=== PATIENT | male | born 1940 | race Caucasian/White ===

== ENCOUNTER 2017-03-12 01:32 | Observation (INO) | payer OTHER ==
[~2017-03-12] VITALS: Ht 170.2 cm; Wt 107.7 kg
[~2017-03-12 01:32] MED LIST: CARVEDILOL12.5 M1 PO; CLINDAMYCIN HC300 MG PO; CORE25 PO; ECO81 PO; LAC PO; LASIX40 MG PO; LEVAQUIN750 MG PO; LEVOTHYROXINE0.15 M2 PO; LOTENSIN40 MG PO; POTASSIUM CHLO10 MEQ PO; SYN1 PO
[2017-03-12 02:28] LABS: CALCIUM 8.9 mg/dL (8.5-10.1); CARBON DIOXIDE 27.1 mmol/L (21-32); CHLORIDE SERUM 107 mmol/L (98-107); CREATININE SERUM 1.8 mg/dL (0.7-1.3); GLUCOSE SERUM 150 mg/dL (74-106); SODIUM SERUM 143 mmol/L (136-145)
[2017-03-12 02:33] LABS: ALBUMIN 3.4 g/dL (3.4-5.0); ALKALINE PHOSPHATASE 77 U/L (46-116); ALT/SGPT 16 U/L (16-63); AST/SGOT 22 U/L (15-37); BILIRUBIN TOTAL 1.18 mg/dL (0.20-1.00); TOTAL PROTEIN, SERUM 7.6 g/dL (6.4-8.2)
[2017-03-12 02:35] LABS: BASOPHIL % 0.6 % (0-2); PLATELET COUNT 158 x10^3mcL (130-400); RED CELL DISTRIBUTION WIDTH 13.1 % (11.5-14.5)
[2017-03-12] MEDS ORDERED: CARVEDILOL12.5 M1 PO (02:42)
[2017-03-12] MEDS ORDERED: FERROUS SULFAT325 M2 PO (02:43)
[2017-03-12] MEDS ORDERED: OLANZAPINE5 M2 PO (02:43)
[2017-03-12 02:44] LABS: CK-MB 1.4 ng/mL (0-3.6)
[2017-03-12] MEDS ORDERED: REQUIP0.5 MG PO (02:44)
[2017-03-12] MEDS ORDERED: ZESTRIL20 MG PO (02:45)
[2017-03-12 04:16] LABS: T3 TOTAL 0.58 ng/mL
[2017-03-12 04:19] LABS: CHOLESTEROL/HDL RATIO 3.5; PHOSPHOROUS 3.1 mg/dL (2.5-4.9)
[2017-03-12 04:31] LABS: FREE T4 1.55 ng/dL (0.76-1.46); FREE THYROXINE INDEX 3.8 ug/dL (1.4-4.5)
[2017-03-12] MEDS ORDERED: LEVOTHYROXINE0.15 M2 PO (04:34)
[2017-03-12 05:38] VITALS: BP 152/78
[2017-03-12 06:21] VITALS: BP 147/82
[2017-03-12 10:00] VITALS: BP 123/8
[2017-03-12 14:00] VITALS: BP 112/68
[2017-03-12 15:56] LABS: microscopic required? YES; urine erythrocyte 1+ (NEGATIVE)
[2017-03-12 16:06] LABS: AMPHETAMINE QUAL UR NONE DETECTED (NEG <=1000)
[2017-03-12 18:22] VITALS: BP 118/62
[2017-03-12 22:16] VITALS: BP 103/48
[2017-03-13] VITALS (8 sets, daily range): BP systolic 102–144; BP diastolic 8–98
[2017-03-13 06:34] LABS: PLATELET COUNT 135 x10^3mcL (130-400)
[2017-03-13 06:54] LABS: CALCIUM 8.5 mg/dL (8.5-10.1); CARBON DIOXIDE 28.1 mmol/L (21-32); CHLORIDE SERUM 105 mmol/L (98-107); CREATININE SERUM 1.8 mg/dL (0.7-1.3); GLUCOSE SERUM 92 mg/dL (74-106); PHOSPHOROUS 3.7 mg/dL (2.5-4.9); POTASSIUM SERUM 3.1 mmol/L (3.5-5.1); SODIUM SERUM 143 mmol/L (136-145)
[2017-03-13 07:05] LABS: BASOPHIL % 0 % (0-2)
[2017-03-14 06:12] VITALS: BP 127/58
[2017-03-14 06:18] LABS: CALCIUM 8.5 mg/dL (8.5-10.1); CARBON DIOXIDE 31.3 mmol/L (21-32); CHLORIDE SERUM 102 mmol/L (98-107); CREATININE SERUM 1.9 mg/dL (0.7-1.3); GLUCOSE SERUM 96 mg/dL (74-106); MAGNESIUM 1.9 mg/dL (1.8-2.4); PHOSPHOROUS 2.8 mg/dL (2.5-4.9); POTASSIUM SERUM 3.7 mmol/L (3.5-5.1); SODIUM SERUM 139 mmol/L (136-145)
[2017-03-14 07:33] LABS: PLATELET COUNT 162 x10^3mcL (130-400); RED CELL DISTRIBUTION WIDTH 13.8 % (11.5-14.5)
[2017-03-14 08:00] VITALS: BP 127/72
[2017-03-14 08:44] LABS: BAND NEUTROPHIL 2 % (0-10); MONOCYTE 7 % (0-7); SEGMENTED NEUTROPHILS 81 % (37-75)
[2017-03-14 08:45] LABS: PLATELET MORPHOLOGY LARGE PLATELET SEEN; rbc morphology (normal/abnorm) NORMAL (NORMAL)
[2017-03-14 10:32] VITALS: BP 96/55
[2017-03-14 12:57] VITALS: BP 120/59
[2017-03-14] MEDS ORDERED: BACTRIM DS1 TAB PO (13:22)
[2017-03-14 13:44] VITALS: BP 120/59
[2017-03-14 13:45] VITALS: BP 120/59
== END 2017-03-14 15:00 | disposition home health service (06) | DRG 291 ==
LOC: ED 01:32 → DU 03:22
PROVIDERS: Emergency Medicine; ADMIT Family Medicine
DX: I11.0 Hypertensive heart disease with heart failure (principal); G93.41 Metabolic encephalopathy; N17.0 Acute kidney failure with tubular necrosis; D68.69 Other thrombophilia; N39.0 Urinary tract infection, site not specified; I50.43 Acute on chronic combined systolic (congestive) and diastolic (congestive) heart failure; E86.0 Dehydration; E11.65 Type 2 diabetes mellitus with hyperglycemia; G47.33 Obstructive sleep apnea (adult) (pediatric); G25.81 Restless legs syndrome; E89.0 Postprocedural hypothyroidism; D64.9 Anemia, unspecified; F20.9 Schizophrenia, unspecified; Z68.37 Body mass index [BMI] 37.0-37.9, adult; Z95.0 Presence of cardiac pacemaker; Z79.82 Long term (current) use of aspirin
CPT/HCPCS: 36600; 82962; 83880; 84439; 97116-GP; 97530-GP; G0378; J0696; J1940; J2916; J3480; J3490; J7030; J7040; J7613; J7620; J7644; Q0092

== ENCOUNTER 2017-05-10 20:55 | Inpatient (IN) | payer OTHER ==
[~2017-05-10] VITALS: Ht 172.7 cm; Wt 118.0 kg
[~2017-05-10 20:55] MED LIST changes: +BACTRIM DS1 TAB PO; +FERROUS SULFAT325 M2 PO; +OLANZAPINE5 M2 PO; +REQUIP0.5 MG PO; +ZESTRIL20 MG PO
[2017-05-10 22:18] LABS: BASOPHIL % 0.2 % (0-2); PLATELET COUNT 161 x10^3mcL (130-400)
[2017-05-10 22:28] LABS: CALCIUM 8.6 mg/dL (8.5-10.1); CARBON DIOXIDE 30.7 mmol/L (21-32); CHLORIDE SERUM 102 mmol/L (98-107); CREATININE SERUM 1.6 mg/dL (0.7-1.3); GLUCOSE SERUM 126 mg/dL (74-106); POTASSIUM SERUM 4.3 mmol/L (3.5-5.1); SODIUM SERUM 140 mmol/L (136-145)
[2017-05-10 22:37] LABS: RED CELL DISTRIBUTION WIDTH 14.9 % (11.5-14.5)
[2017-05-10 22:42] LABS: microscopic required? NO
[2017-05-10 22:47] LABS: ALKALINE PHOSPHATASE 81 U/L (46-116); ALT/SGPT 12 U/L (16-63); AST/SGOT 16 U/L (15-37); BILIRUBIN TOTAL 0.7 mg/dL (0.20-1.00); TOTAL PROTEIN, SERUM 7.4 g/dL (6.4-8.2)
[2017-05-10 22:48] LABS: ALBUMIN 3.3 g/dL (3.4-5.0); CK-MB 0.6 ng/mL (0-3.6)
[2017-05-10 23:01] LABS: urine erythrocyte NEGATIVE (NEGATIVE)
[2017-05-11 02:03] LABS: AMPHETAMINE QUAL UR NONE DETECTED (NEG <=1000)
[2017-05-11 02:09] LABS: MAGNESIUM 2.1 mg/dL (1.8-2.4); PHOSPHOROUS 2.5 mg/dL (2.5-4.9)
[2017-05-11 02:43] VITALS: BP 125/75
[2017-05-11 04:36] LABS: BASOPHIL % 0.2 % (0-2); PLATELET COUNT 141 x10^3mcL (130-400)
[2017-05-11 04:37] LABS: RED CELL DISTRIBUTION WIDTH 15.6 % (11.5-14.5)
[2017-05-11 04:49] LABS: CALCIUM 8.4 mg/dL (8.5-10.1); CARBON DIOXIDE 27.7 mmol/L (21-32); CHLORIDE SERUM 103 mmol/L (98-107); CREATININE SERUM 1.6 mg/dL (0.7-1.3); GLUCOSE SERUM 107 mg/dL (74-106); POTASSIUM SERUM 3.9 mmol/L (3.5-5.1); SODIUM SERUM 139 mmol/L (136-145)
[2017-05-11 09:35] VITALS: BP 120/63
[2017-05-11 13:16] VITALS: BP 99/49
[2017-05-11 17:09] VITALS: BP 119/60
[2017-05-11 21:45] VITALS: BP 128/59
[2017-05-12 05:27] VITALS: BP 128/72
[2017-05-12 07:26] LABS: BASOPHIL % 0.5 % (0-2); PLATELET COUNT 136 x10^3mcL (130-400)
[2017-05-12 07:39] LABS: CALCIUM 8.4 mg/dL (8.5-10.1); CARBON DIOXIDE 28.5 mmol/L (21-32); CHLORIDE SERUM 106 mmol/L (98-107); CREATININE SERUM 1.6 mg/dL (0.7-1.3); GLUCOSE SERUM 86 mg/dL (74-106); POTASSIUM SERUM 3.3 mmol/L (3.5-5.1); SODIUM SERUM 142 mmol/L (136-145)
[2017-05-12 07:56] LABS: RED CELL DISTRIBUTION WIDTH 15.5 % (11.5-14.5)
[2017-05-12 09:42] VITALS: BP 136/75
[2017-05-12 13:32] VITALS: BP 135/76
[2017-05-12 17:20] VITALS: BP 122/69
[2017-05-12 21:46] VITALS: BP 129/67
[2017-05-13 05:05] VITALS: BP 137/73
[2017-05-13 06:52] LABS: BASOPHIL % 0.3 % (0-2); PLATELET COUNT 147 x10^3mcL (130-400)
[2017-05-13 06:54] LABS: CALCIUM 8.4 mg/dL (8.5-10.1); CARBON DIOXIDE 29.7 mmol/L (21-32); CHLORIDE SERUM 105 mmol/L (98-107); CREATININE SERUM 1.6 mg/dL (0.7-1.3); GLUCOSE SERUM 101 mg/dL (74-106); POTASSIUM SERUM 3.6 mmol/L (3.5-5.1); SODIUM SERUM 142 mmol/L (136-145)
[2017-05-13 07:11] LABS: RED CELL DISTRIBUTION WIDTH 15.6 % (11.5-14.5)
[2017-05-13 10:35] VITALS: BP 140/62
[2017-05-13 14:57] VITALS: BP 123/66
[2017-05-13 17:29] VITALS: BP 141/73
[2017-05-13 20:58] VITALS: BP 146/86
[2017-05-14 05:16] VITALS: BP 134/83
[2017-05-14 06:39] LABS: CALCIUM 8.6 mg/dL (8.5-10.1); CARBON DIOXIDE 30.2 mmol/L (21-32); CHLORIDE SERUM 103 mmol/L (98-107); CREATININE SERUM 1.6 mg/dL (0.7-1.3); GLUCOSE SERUM 94 mg/dL (74-106); POTASSIUM SERUM 3.6 mmol/L (3.5-5.1); SODIUM SERUM 143 mmol/L (136-145)
[2017-05-14 10:34] VITALS: BP 139/79
[2017-05-14 14:41] VITALS: BP 131/71
[2017-05-14 18:12] VITALS: BP 152/89
[2017-05-14 19:15] VITALS: BP 152/89
== END 2017-05-14 21:36 | DRG 177 ==
LOC: ED 20:55 → DU 05-11 00:17
PROVIDERS: Emergency Medicine Emergency Medical Services; ADMIT Family Medicine Sports Medicine
DX: J69.0 Pneumonitis due to inhalation of food and vomit (principal); G93.41 Metabolic encephalopathy; N17.0 Acute kidney failure with tubular necrosis; I50.43 Acute on chronic combined systolic (congestive) and diastolic (congestive) heart failure; D68.69 Other thrombophilia; Z68.41 Body mass index [BMI] 40.0-44.9, adult; E11.59 Type 2 diabetes mellitus with other circulatory complications; E11.65 Type 2 diabetes mellitus with hyperglycemia; F03.90 Unspecified dementia, unspecified severity, without behavioral disturbance, psychotic disturbance, mood disturbance, and anxiety; G25.81 Restless legs syndrome; I10 Essential (primary) hypertension; G47.33 Obstructive sleep apnea (adult) (pediatric); F20.9 Schizophrenia, unspecified; Z66 Do not resuscitate; Z95.0 Presence of cardiac pacemaker; Z22.322 Carrier or suspected carrier of Methicillin resistant Staphylococcus aureus
CPT/HCPCS: 36600; 82962; 83880; 94150; 97116-GP; 97530-GP; J0696; J1956; J2543; J7030; Q0092

== ENCOUNTER 2017-11-08 20:34 | Inpatient (IN) | payer OTHER ==
[~2017-11-08] VITALS: Ht 172.7 cm; Wt 112.1 kg
[2017-11-08] MEDS ORDERED: KCL20L PO (21:24)
[2017-11-08] MEDS ORDERED: KLOR-CON M1010 MEQ PO (22:09)
[2017-11-08] MEDS ORDERED: NATURAL IRON65 MG PO (22:10)
[2017-11-08 22:20] LABS: BASOPHIL % 0.7 % (0-2)
[2017-11-08 22:25] LABS: PLATELET COUNT 125 x10^3mcL (130-400); RED CELL DISTRIBUTION WIDTH 14.9 % (11.5-14.5)
[2017-11-08 22:29] LABS: CALCIUM 8.9 mg/dL (8.5-10.1); CARBON DIOXIDE 28.8 mmol/L (21-32); CHLORIDE SERUM 102 mmol/L (98-107); GLUCOSE SERUM 135 mg/dL (74-106); POTASSIUM SERUM 4.1 mmol/L (3.5-5.1); SODIUM SERUM 142 mmol/L (136-145)
[2017-11-08 22:41] LABS: ALBUMIN 3.6 g/dL (3.4-5.0); ALKALINE PHOSPHATASE 52 U/L (46-116); ALT/SGPT 20 U/L (16-63); AMYLASE 90 U/L (25-115); AST/SGOT 27 U/L (15-37); BILIRUBIN TOTAL 0.74 mg/dL (0.20-1.00); CHOLESTEROL 187 mg/dL (<200); HDL CHOLESTEROL 45 mg/dL (40-60); LIPASE 74 IU/L (73-393); MAGNESIUM 1.9 mg/dL (1.8-2.4); T4(THYROXINE) 8.6 ug/dL (4.7-13.3); TOTAL PROTEIN, SERUM 7.8 g/dL (6.4-8.2)
[2017-11-08 23:33] LABS: microscopic required? NO
[2017-11-09] VITALS (7 sets, daily range): BP systolic 94–130; BP diastolic 49–63; Ht 172.7 cm; Wt 112.1 kg
[2017-11-09 00:09] LABS: urine erythrocyte NEGATIVE (NEGATIVE)
[2017-11-09 00:18] LABS: AMPHETAMINE QUAL UR NONE DETECTED (NEG <=1000)
[2017-11-09 04:27] LABS: T3 TOTAL 0.41 ng/mL
[2017-11-09 04:35] LABS: FREE T4 1.27 ng/dL (0.76-1.46)
[2017-11-09 07:45] LABS: CALCIUM 8.1 mg/dL (8.5-10.1); CARBON DIOXIDE 27.6 mmol/L (21-32); CHLORIDE SERUM 103 mmol/L (98-107); GLUCOSE SERUM 124 mg/dL (74-106); POTASSIUM SERUM 3.7 mmol/L (3.5-5.1); SODIUM SERUM 142 mmol/L (136-145)
[2017-11-09 07:56] LABS: BASOPHIL % 0.1 % (0-2); PLATELET COUNT 142 x10^3mcL (130-400); RED CELL DISTRIBUTION WIDTH 15.4 % (11.5-14.5)
[2017-11-10 05:51] VITALS: BP 122/74
[2017-11-10 06:55] LABS: BASOPHIL % 0.4 % (0-2)
[2017-11-10 07:09] LABS: CALCIUM 7.9 mg/dL (8.5-10.1); CARBON DIOXIDE 26.7 mmol/L (21-32); CHLORIDE SERUM 107 mmol/L (98-107); CREATININE SERUM 1.7 mg/dL (0.7-1.3); GLUCOSE SERUM 89 mg/dL (74-106); MAGNESIUM 1.9 mg/dL (1.8-2.4); PHOSPHOROUS 3.4 mg/dL (2.5-4.9); POTASSIUM SERUM 3.8 mmol/L (3.5-5.1); SODIUM SERUM 142 mmol/L (136-145)
[2017-11-10 07:16] LABS: PLATELET COUNT 116 x10^3mcL (130-400); RED CELL DISTRIBUTION WIDTH 15.1 % (11.5-14.5)
[2017-11-10 09:10] VITALS: BP 135/68
[2017-11-10 13:01] VITALS: BP 123/63
[2017-11-10 16:50] VITALS: BP 129/69
[2017-11-10 21:02] VITALS: BP 135/77
[2017-11-11 05:14] VITALS: BP 125/77
[2017-11-11 07:51] LABS: BASOPHIL % 0.4 % (0-2)
[2017-11-11 07:52] LABS: PLATELET COUNT 126 x10^3mcL (130-400); RED CELL DISTRIBUTION WIDTH 15.3 % (11.5-14.5)
[2017-11-11 07:58] LABS: CALCIUM 8.1 mg/dL (8.5-10.1); CARBON DIOXIDE 29.3 mmol/L (21-32); CHLORIDE SERUM 105 mmol/L (98-107); CREATININE SERUM 1.6 mg/dL (0.7-1.3); GLUCOSE SERUM 89 mg/dL (74-106); POTASSIUM SERUM 3.8 mmol/L (3.5-5.1); SODIUM SERUM 142 mmol/L (136-145)
[2017-11-11 09:14] LABS: PHOSPHOROUS 3.1 mg/dL (2.5-4.9)
[2017-11-11 09:38] VITALS: BP 145/78
[2017-11-11 13:56] VITALS: BP 151/76
[2017-11-11 17:47] VITALS: BP 159/105
[2017-11-11 21:31] VITALS: BP 114/56
[2017-11-12 05:00] VITALS: BP 139/81
[2017-11-12 06:25] LABS: CALCIUM 8.5 mg/dL (8.5-10.1); CHLORIDE SERUM 105 mmol/L (98-107); CREATININE SERUM 1.5 mg/dL (0.7-1.3); GLUCOSE SERUM 88 mg/dL (74-106); POTASSIUM SERUM 4.2 mmol/L (3.5-5.1); SODIUM SERUM 142 mmol/L (136-145)
[2017-11-12 06:26] LABS: BASOPHIL % 0.4 % (0-2); PLATELET COUNT 135 x10^3mcL (130-400)
[2017-11-12 06:35] LABS: RED CELL DISTRIBUTION WIDTH 15.6 % (11.5-14.5)
[2017-11-12 09:16] VITALS: BP 136/88
[2017-11-12 13:48] VITALS: BP 152/87
[2017-11-12] MEDS ORDERED: LEV500 PO (15:15)
[2017-11-12] MEDS ORDERED: CLEOCIN HCL150 MG PO (15:16)
[2017-11-12] MEDS ORDERED: LAC PO (15:17)
[2017-11-12 16:35] VITALS: BP 152/87
[2017-11-12 17:48] VITALS: BP 158/114
== END 2017-11-12 19:41 | disposition home health service (06) | DRG 177 ==
LOC: ED 20:34 → DU 23:12 → MU 23:12 → DU 11-09 00:15 → MU 11-12 08:50
PROVIDERS: Emergency Medicine; Family Medicine
DX: J69.0 Pneumonitis due to inhalation of food and vomit (principal); G93.41 Metabolic encephalopathy; J96.01 Acute respiratory failure with hypoxia; N17.0 Acute kidney failure with tubular necrosis; I50.43 Acute on chronic combined systolic (congestive) and diastolic (congestive) heart failure; I11.0 Hypertensive heart disease with heart failure; J01.90 Acute sinusitis, unspecified; E86.0 Dehydration; E11.65 Type 2 diabetes mellitus with hyperglycemia; F03.90 Unspecified dementia, unspecified severity, without behavioral disturbance, psychotic disturbance, mood disturbance, and anxiety; E03.9 Hypothyroidism, unspecified; Z22.322 Carrier or suspected carrier of Methicillin resistant Staphylococcus aureus; Z95.0 Presence of cardiac pacemaker; Z79.82 Long term (current) use of aspirin
CPT/HCPCS: 82962; 83880; 84439; 87804; 97110-GP; 97116-GP; 97530-GP; G0480; J1885; J1956; J3490; J7030; J7620

== ENCOUNTER 2017-12-13 13:10 | Inpatient (IN) | payer OTHER ==
[~2017-12-13] VITALS: Ht 172.7 cm; Wt 118.4 kg
[~2017-12-13 13:10] MED LIST changes: +CLEOCIN HCL150 MG PO; +KCL20L PO; +KLOR-CON M1010 MEQ PO; +LEV500 PO; +NATURAL IRON65 MG PO
[2017-12-13 15:07] LABS: CARBON DIOXIDE 31.7 mmol/L (21-32); CHLORIDE SERUM 105 mmol/L (98-107); CREATININE SERUM 1.5 mg/dL (0.7-1.3); GLUCOSE SERUM 124 mg/dL (74-106); POTASSIUM SERUM 3.8 mmol/L (3.5-5.1); SODIUM SERUM 145 mmol/L (136-145)
[2017-12-13 15:11] LABS: PLATELET COUNT 170 x10^3mcL (130-400)
[2017-12-13 15:13] LABS: ALBUMIN 3.5 g/dL (3.4-5.0); ALKALINE PHOSPHATASE 79 U/L (46-116); ALT/SGPT 14 U/L (16-63); AST/SGOT 27 U/L (15-37); BILIRUBIN TOTAL 0.61 mg/dL (0.20-1.00); TOTAL PROTEIN, SERUM 8.1 g/dL (6.4-8.2)
[2017-12-13 15:13] LABS: RED CELL DISTRIBUTION WIDTH 15.7 % (11.5-14.5)
[2017-12-13 16:08] LABS: MAGNESIUM 2.3 mg/dL (1.8-2.4); PHOSPHOROUS 3.7 mg/dL (2.5-4.9)
[2017-12-13 16:19] LABS: T3 TOTAL 0.68 ng/mL
[2017-12-13 16:28] LABS: FREE T4 1.1 ng/dL (0.76-1.46); FREE THYROXINE INDEX 2.8 ug/dL (1.4-4.5); T4(THYROXINE) 8.2 ug/dL (4.7-13.3)
[2017-12-13 16:39] LABS: microscopic required? YES; urine erythrocyte TRACE (NEGATIVE)
[2017-12-13 17:34] VITALS: BP 151/67
[2017-12-13 21:56] VITALS: BP 156/85
[2017-12-14 06:10] VITALS: BP 144/82
[2017-12-14 07:01] LABS: POTASSIUM SERUM 3.4 mmol/L (3.5-5.1); SODIUM SERUM 145 mmol/L (136-145)
[2017-12-14 07:02] LABS: CALCIUM 8.8 mg/dL (8.5-10.1); CARBON DIOXIDE 30.8 mmol/L (21-32); CHLORIDE SERUM 108 mmol/L (98-107); CHOLESTEROL 161 mg/dL (<200); CREATININE SERUM 1.5 mg/dL (0.7-1.3); GLUCOSE SERUM 100 mg/dL (74-106); MAGNESIUM 2.3 mg/dL (1.8-2.4); PHOSPHOROUS 3.2 mg/dL (2.5-4.9); TRIGLYCERIDES 65 mg/dL (<150)
[2017-12-14 07:03] LABS: CHOLESTEROL/HDL RATIO 3.3; HDL CHOLESTEROL 49 mg/dL (40-60)
[2017-12-14 07:04] LABS: BASOPHIL % 0.3 % (0-2); PLATELET COUNT 161 x10^3mcL (130-400)
[2017-12-14 07:07] LABS: RED CELL DISTRIBUTION WIDTH 15.8 % (11.5-14.5)
[2017-12-14 08:28] VITALS: BP 106/59
[2017-12-14 12:09] VITALS: BP 107/62
[2017-12-14 22:02] VITALS: BP 158/82
[2017-12-15 05:59] VITALS: BP 135/56
[2017-12-15 06:51] LABS: BASOPHIL % 0.5 % (0-2); PLATELET COUNT 149 x10^3mcL (130-400)
[2017-12-15 06:57] LABS: RED CELL DISTRIBUTION WIDTH 16.2 % (11.5-14.5)
[2017-12-15 07:07] LABS: CALCIUM 8.5 mg/dL (8.5-10.1); CHLORIDE SERUM 108 mmol/L (98-107); CREATININE SERUM 1.4 mg/dL (0.7-1.3); POTASSIUM SERUM 3.6 mmol/L (3.5-5.1); SODIUM SERUM 147 mmol/L (136-145)
[2017-12-15 07:37] LABS: GLUCOSE SERUM 87 mg/dL (74-106)
[2017-12-15 09:16] VITALS: BP 140/71
[2017-12-15 13:12] VITALS: BP 150/88
[2017-12-15 16:08] VITALS: BP 152/72
[2017-12-15 20:42] VITALS: BP 171/83
[2017-12-15 22:23] VITALS: BP 161/93
[2017-12-16] VITALS (11 sets, daily range): BP systolic 112–159; BP diastolic 61–78
[2017-12-16 11:42] LABS: CALCIUM 8.3 mg/dL (8.5-10.1); CARBON DIOXIDE 33.7 mmol/L (21-32); CHLORIDE SERUM 107 mmol/L (98-107); CREATININE SERUM 1.3 mg/dL (0.7-1.3); GLUCOSE SERUM 94 mg/dL (74-106); POTASSIUM SERUM 3.5 mmol/L (3.5-5.1); SODIUM SERUM 145 mmol/L (136-145)
[2017-12-16 12:06] LABS: BASOPHIL % 0.4 % (0-2); PLATELET COUNT 162 x10^3mcL (130-400)
[2017-12-16 12:12] LABS: RED CELL DISTRIBUTION WIDTH 15.7 % (11.5-14.5)
[2017-12-17] VITALS (22 sets, daily range): BP systolic 96–142; BP diastolic 44–81
[2017-12-17 05:47] LABS: BASOPHIL % 0.5 % (0-2); CALCIUM 8.1 mg/dL (8.5-10.1); CARBON DIOXIDE 32.2 mmol/L (21-32); CHLORIDE SERUM 107 mmol/L (98-107); CREATININE SERUM 1.4 mg/dL (0.7-1.3); GLUCOSE SERUM 92 mg/dL (74-106); PHOSPHOROUS 3.1 mg/dL (2.5-4.9); PLATELET COUNT 156 x10^3mcL (130-400); POTASSIUM SERUM 3.4 mmol/L (3.5-5.1); RED CELL DISTRIBUTION WIDTH 15.8 % (11.5-14.5); SODIUM SERUM 143 mmol/L (136-145)
[2017-12-18] VITALS (10 sets, daily range): BP systolic 104–139; BP diastolic 61–90
[2017-12-18 05:32] LABS: BASOPHIL % 0.3 % (0-2); PLATELET COUNT 142 x10^3mcL (130-400)
[2017-12-18 05:37] LABS: RED CELL DISTRIBUTION WIDTH 15.9 % (11.5-14.5)
[2017-12-18 05:49] LABS: CALCIUM 7.9 mg/dL (8.5-10.1); CARBON DIOXIDE 30.5 mmol/L (21-32); CHLORIDE SERUM 105 mmol/L (98-107); CREATININE SERUM 1.6 mg/dL (0.7-1.3); GLUCOSE SERUM 153 mg/dL (74-106); MAGNESIUM 2.1 mg/dL (1.8-2.4); PHOSPHOROUS 2.6 mg/dL (2.5-4.9); POTASSIUM SERUM 3.1 mmol/L (3.5-5.1); SODIUM SERUM 139 mmol/L (136-145)
[2017-12-19 03:26] VITALS: BP 104/61
[2017-12-19 05:35] LABS: PLATELET COUNT 135 x10^3mcL (130-400)
[2017-12-19 05:45] LABS: BASOPHIL % 2.2 % (0-2); RED CELL DISTRIBUTION WIDTH 16.2 % (11.5-14.5)
[2017-12-19 05:49] LABS: CALCIUM 7.9 mg/dL (8.5-10.1); CARBON DIOXIDE 32.3 mmol/L (21-32); CHLORIDE SERUM 108 mmol/L (98-107); CREATININE SERUM 1.5 mg/dL (0.7-1.3); GLUCOSE SERUM 92 mg/dL (74-106); POTASSIUM SERUM 3.6 mmol/L (3.5-5.1); SODIUM SERUM 144 mmol/L (136-145)
[2017-12-19 06:02] LABS: PHOSPHOROUS 3.1 mg/dL (2.5-4.9)
[2017-12-19 07:56] VITALS: BP 124/70
[2017-12-19 09:03] VITALS: Ht 172.7 cm; Wt 118.4 kg
[2017-12-19 11:06] VITALS: BP 142/75
[2017-12-19 15:00] VITALS: BP 124/67
[2017-12-19 17:19] VITALS: BP 116/71
[2017-12-19 21:13] VITALS: BP 114/61
[2017-12-20 06:22] VITALS: BP 145/70
[2017-12-20 06:43] LABS: CALCIUM 7.8 mg/dL (8.5-10.1); CHLORIDE SERUM 107 mmol/L (98-107); CREATININE SERUM 1.3 mg/dL (0.7-1.3); GLUCOSE SERUM 138 mg/dL (74-106); MAGNESIUM 2.1 mg/dL (1.8-2.4); PHOSPHOROUS 2.7 mg/dL (2.5-4.9); POTASSIUM SERUM 3.8 mmol/L (3.5-5.1); SODIUM SERUM 143 mmol/L (136-145)
[2017-12-20 06:44] LABS: BASOPHIL % 0.4 % (0-2); PLATELET COUNT 132 x10^3mcL (130-400)
[2017-12-20 07:03] LABS: RED CELL DISTRIBUTION WIDTH 16.3 % (11.5-14.5)
[2017-12-20 09:33] VITALS: BP 123/71
[2017-12-20 12:59] VITALS: BP 145/69
[2017-12-20 17:26] VITALS: BP 154/87
[2017-12-20 20:37] VITALS: BP 153/64
[2017-12-21 06:01] VITALS: BP 139/97
[2017-12-21 08:42] LABS: BASOPHIL % 0.4 % (0-2); PLATELET COUNT 135 x10^3mcL (130-400)
[2017-12-21 08:43] LABS: CALCIUM 8.1 mg/dL (8.5-10.1); CARBON DIOXIDE 31.9 mmol/L (21-32); CHLORIDE SERUM 110 mmol/L (98-107); CREATININE SERUM 1.2 mg/dL (0.7-1.3); GLUCOSE SERUM 127 mg/dL (74-106); SODIUM SERUM 142 mmol/L (136-145)
[2017-12-21 08:48] LABS: RED CELL DISTRIBUTION WIDTH 16.5 % (11.5-14.5)
[2017-12-21 10:15] VITALS: BP 142/80
[2017-12-21] MEDS ORDERED: BD LACTINEX1.4 MG PO (12:29)
[2017-12-21] MEDS ORDERED: ZOS3PM IV (12:29)
[2017-12-21] MEDS ORDERED: ZYPREXA5 M1 PO (12:30)
[2017-12-21] MEDS ORDERED: SEROQUEL100 MG PO (12:31)
[2017-12-21 13:48] VITALS: BP 143/73
[2017-12-21 16:32] VITALS: BP 143/73
[2017-12-21 17:24] VITALS: BP 141/76
== END 2017-12-21 17:56 | DRG 689 ==
LOC: ED 13:10 → IC 15:32 → DU 15:32 → IC 12-16 10:59 → DU 12-16 11:03 → IC 12-16 11:04 → DU 12-16 11:07 → IC 12-16 11:20 → DU 12-16 11:27 → IC 12-16 11:30 → DU 12-16 17:26 → IC 12-16 17:34 → DU 12-19 14:56 → MU 12-21 11:41
PROVIDERS: Emergency Medicine; Family Medicine
PROC: 5A1945Z Respiratory Ventilation, 24-96 Consecutive Hours (ICD-10-PCS; principal; 2017-12-16)
PROC: 0BH17EZ Insertion of Endotracheal Airway into Trachea, Via Natural or Artificial Opening (ICD-10-PCS; 2017-12-16)
PROC: 05HM33Z Insertion of Infusion Device into Right Internal Jugular Vein, Percutaneous Approach (ICD-10-PCS; 2017-12-16)
PROC: B543ZZA Ultrasonography of Right Jugular Veins, Guidance (ICD-10-PCS; 2017-12-16)
DX: N39.0 Urinary tract infection, site not specified (principal); G93.41 Metabolic encephalopathy; N17.0 Acute kidney failure with tubular necrosis; J96.01 Acute respiratory failure with hypoxia; J69.0 Pneumonitis due to inhalation of food and vomit; E87.0 Hyperosmolality and hypernatremia; F02.81 Dementia in other diseases classified elsewhere, unspecified severity, with behavioral disturbance; G20 Parkinson's disease; B95.7 Other staphylococcus as the cause of diseases classified elsewhere; E11.65 Type 2 diabetes mellitus with hyperglycemia; E11.51 Type 2 diabetes mellitus with diabetic peripheral angiopathy without gangrene; I10 Essential (primary) hypertension; E89.0 Postprocedural hypothyroidism; G47.33 Obstructive sleep apnea (adult) (pediatric); I48.91 Unspecified atrial fibrillation; D64.9 Anemia, unspecified; Z68.31 Body mass index [BMI] 31.0-31.9, adult; Z95.0 Presence of cardiac pacemaker; Z22.322 Carrier or suspected carrier of Methicillin resistant Staphylococcus aureus; Z66 Do not resuscitate
CPT/HCPCS: 36556; 36600; 82962; 83880; 84439; 92526-GN; 92610-GN; 97110-GP; 97116-GP; 97164; 97530-GP; A4628; C9113; J0696; J1630; J1642; J1940; J2060; J2543; J2704; J3370; J3480; J3490; J7030; J7040; J7620; Q0092

== ENCOUNTER 2018-05-12 15:12 | Inpatient (IN) | payer OTHER ==
[~2018-05-12] VITALS: Ht 177.8 cm; Wt 105.0 kg
[~2018-05-12 15:12] MED LIST changes: +BD LACTINEX1.4 MG PO; +SEROQUEL100 MG PO; +ZOS3PM IV; +ZYPREXA5 M1 PO
[2018-05-12 16:12] LABS: microscopic required? NO
[2018-05-12 16:18] LABS: urine erythrocyte NEGATIVE (NEGATIVE)
[2018-05-12 16:20] LABS: BASOPHIL % 0.4 % (0-2); PLATELET COUNT 142 x10^3mcL (130-400)
[2018-05-12 16:22] LABS: RED CELL DISTRIBUTION WIDTH 15.6 % (11.5-14.5)
[2018-05-12 16:39] LABS: ALBUMIN 3.5 g/dL (3.4-5.0); ALKALINE PHOSPHATASE 50 U/L (46-116); ALT/SGPT 1 U/L (16-63); AST/SGOT 24 U/L (15-37); BILIRUBIN TOTAL 1.03 mg/dL (0.20-1.00); CALCIUM 8.7 mg/dL (8.5-10.1); CARBON DIOXIDE 27.8 mmol/L (21-32); CHLORIDE SERUM 97 mmol/L (98-107); CREATININE SERUM 2.5 mg/dL (0.7-1.3); GLUCOSE SERUM 134 mg/dL (74-106); LIPASE 101 IU/L (73-393); POTASSIUM SERUM 3.2 mmol/L (3.5-5.1); SODIUM SERUM 138 mmol/L (136-145); TOTAL PROTEIN, SERUM 7.7 g/dL (6.4-8.2)
[2018-05-12] MEDS ORDERED: Z5 PO (18:29)
[2018-05-12] MEDS ORDERED: NORCO1 TA2 PO (18:29)
[2018-05-12] MEDS ORDERED: TAMSULOSIN HYD0.4 M1 PO (18:29)
[2018-05-12] MEDS ORDERED: FUROSEMIDE40 MG PO (18:29)
[2018-05-12] MEDS ORDERED: CARVEDILOL12.5 M1 PO (18:30)
[2018-05-12] MEDS ORDERED: LISINOPRIL20 MG PO (18:30)
[2018-05-12] MEDS ORDERED: SYNTHROID0.175 MG PO (18:30)
[2018-05-12] MEDS ORDERED: FINASTERIDE5 M1 PO (18:31)
[2018-05-12] MEDS ORDERED: POTASSIUM CHLOR8 MEQ PO (18:31)
[2018-05-12] MEDS ORDERED: ZOLOFT25 MG PO (18:31)
[2018-05-12] MEDS ORDERED: REQUIP0.5 MG PO (18:31)
[2018-05-12 19:24] VITALS: BP 109/59
[2018-05-12 20:42] VITALS: BP 71/42
[2018-05-12 20:45] VITALS: BP 79/48
[2018-05-12 22:08] VITALS: BP 104/46
[2018-05-13 05:42] LABS: BASOPHIL % 0.4 % (0-2)
[2018-05-13 05:43] LABS: PLATELET COUNT 129 x10^3mcL (130-400); RED CELL DISTRIBUTION WIDTH 15.6 % (11.5-14.5)
[2018-05-13 05:59] VITALS: BP 101/61
[2018-05-13 06:03] LABS: CALCIUM 8.7 mg/dL (8.5-10.1); CARBON DIOXIDE 30.1 mmol/L (21-32); CHLORIDE SERUM 101 mmol/L (98-107); CREATININE SERUM 2.1 mg/dL (0.7-1.3); GLUCOSE SERUM 108 mg/dL (74-106); POTASSIUM SERUM 3.1 mmol/L (3.5-5.1); SODIUM SERUM 140 mmol/L (136-145)
[2018-05-13 09:17] VITALS: BP 98/52
[2018-05-13 12:55] VITALS: BP 102/50
[2018-05-13 17:40] VITALS: BP 80/53
[2018-05-13 20:43] VITALS: BP 101/53
[2018-05-14 04:51] VITALS: BP 131/75
[2018-05-14 06:17] LABS: BASOPHIL % 0.3 % (0-2)
[2018-05-14 06:20] LABS: CALCIUM 8.9 mg/dL (8.5-10.1); CHLORIDE SERUM 103 mmol/L (98-107); GLUCOSE SERUM 106 mg/dL (74-106); MAGNESIUM 2.1 mg/dL (1.8-2.4); POTASSIUM SERUM 3.1 mmol/L (3.5-5.1); SODIUM SERUM 141 mmol/L (136-145)
[2018-05-14 06:50] LABS: PLATELET COUNT 128 x10^3mcL (130-400)
[2018-05-14 08:54] VITALS: BP 93/56
[2018-05-14 12:38] VITALS: BP 91/57
[2018-05-14 17:11] VITALS: BP 96/59
[2018-05-14 18:03] VITALS: Ht 177.8 cm; Wt 105.0 kg
[2018-05-14] MEDS ORDERED: AMOXICILLIN AND1 TAB PO (19:27)
[2018-05-14] MEDS ORDERED: DOXYCYCLINE MO100 MG PO (19:27)
[2018-05-14 19:36] VITALS: BP 96/59
== END 2018-05-14 20:30 | disposition home or self-care (01) | DRG 682 ==
LOC: ED 15:12 → DU 17:48
PROVIDERS: Emergency Medicine; Internal Medicine Pulmonary Disease
DX: N17.9 Acute kidney failure, unspecified (principal); J18.9 Pneumonia, unspecified organism; N39.0 Urinary tract infection, site not specified; E86.0 Dehydration; E87.6 Hypokalemia; I12.9 Hypertensive chronic kidney disease with stage 1 through stage 4 chronic kidney disease, or unspecified chronic kidney disease; E11.22 Type 2 diabetes mellitus with diabetic chronic kidney disease; D64.9 Anemia, unspecified; I48.91 Unspecified atrial fibrillation; E03.9 Hypothyroidism, unspecified; N18.3 Chronic kidney disease, stage 3 (moderate); N40.0 Benign prostatic hyperplasia without lower urinary tract symptoms; Z95.0 Presence of cardiac pacemaker; Z68.30 Body mass index [BMI] 30.0-30.9, adult; F03.90 Unspecified dementia, unspecified severity, without behavioral disturbance, psychotic disturbance, mood disturbance, and anxiety
CPT/HCPCS: 36600; 82962; 83880; 97110-GP; 97116-GP; 97530-GP; J0456; J0696; J1650; J3480; J7030; Q0092

== ENCOUNTER 2018-05-21 17:40 | Inpatient (IN) | payer OTHER ==
[~2018-05-21] VITALS: Ht 177.8 cm; Wt 106.2 kg
[~2018-05-21 17:40] MED LIST changes: +AMOXICILLIN AND1 TAB PO; +DOXYCYCLINE MO100 MG PO; +FINASTERIDE5 M1 PO; +FUROSEMIDE40 MG PO; +LISINOPRIL20 MG PO; +NORCO1 TA2 PO; +POTASSIUM CHLOR8 MEQ PO; +SYNTHROID0.175 MG PO; +TAMSULOSIN HYD0.4 M1 PO; +Z5 PO; +ZOLOFT25 MG PO
[2018-05-21 17:53] VITALS: Ht 177.8 cm; Wt 106.2 kg
[2018-05-21 18:23] LABS: BASOPHIL % 0.3 % (0-2); PLATELET COUNT 170 x10^3mcL (130-400); RED CELL DISTRIBUTION WIDTH 15.5 % (11.5-14.5)
[2018-05-21 18:33] LABS: ALBUMIN 3.5 g/dL (3.4-5.0); ALKALINE PHOSPHATASE 62 U/L (46-116); ALT/SGPT 19 U/L (16-63); AST/SGOT 28 U/L (15-37); BILIRUBIN TOTAL 0.8 mg/dL (0.20-1.00); CALCIUM 8.9 mg/dL (8.5-10.1); CARBON DIOXIDE 28.7 mmol/L (21-32); CHLORIDE SERUM 97 mmol/L (98-107); CREATININE SERUM 2.1 mg/dL (0.7-1.3); GLUCOSE SERUM 143 mg/dL (74-106); LIPASE 122 IU/L (73-393); POTASSIUM SERUM 3.9 mmol/L (3.5-5.1); SODIUM SERUM 137 mmol/L (136-145); TOTAL PROTEIN, SERUM 7.8 g/dL (6.4-8.2)
[2018-05-21] MEDS ORDERED: LEVOTHYROXINE0.15 M2 PO (20:21)
[2018-05-21] MEDS ORDERED: LASIX20 MG PO (20:22)
[2018-05-21] MEDS ORDERED: PRINIVIL20 MG PO (20:22)
[2018-05-21] MEDS ORDERED: CARVEDILOL12.5 M1 PO (20:22)
[2018-05-21] MEDS ORDERED: LASIX80 MG PO (20:22)
[2018-05-21] MEDS ORDERED: TAMSULOSIN HYD0.4 M1 (20:23)
[2018-05-21] MEDS ORDERED: POTASSIUM CHLO10 MEQ (20:24)
[2018-05-21 21:23] VITALS: BP 118/54
[2018-05-22 06:02] VITALS: BP 99/60
[2018-05-22 06:16] LABS: BASOPHIL % 0.3 % (0-2); PLATELET COUNT 149 x10^3mcL (130-400)
[2018-05-22 06:35] LABS: ALKALINE PHOSPHATASE 52 U/L (46-116); ALT/SGPT 16 U/L (16-63); AST/SGOT 25 U/L (15-37); BILIRUBIN TOTAL 0.71 mg/dL (0.20-1.00); CALCIUM 8.2 mg/dL (8.5-10.1); CARBON DIOXIDE 28.3 mmol/L (21-32); CHLORIDE SERUM 103 mmol/L (98-107); CREATININE SERUM 2.1 mg/dL (0.7-1.3); GLUCOSE SERUM 101 mg/dL (74-106); MAGNESIUM 1.5 mg/dL (1.8-2.4); POTASSIUM SERUM 3.2 mmol/L (3.5-5.1); SODIUM SERUM 144 mmol/L (136-145); TOTAL PROTEIN, SERUM 6.9 g/dL (6.4-8.2)
[2018-05-22 06:41] LABS: RED CELL DISTRIBUTION WIDTH 15.5 % (11.5-14.5)
[2018-05-22 07:10] LABS: ALBUMIN 3.1 g/dL (3.4-5.0)
[2018-05-22 08:31] VITALS: BP 85/50; BP 98/48
[2018-05-22 12:37] VITALS: BP 118/58
[2018-05-22 16:30] VITALS: BP 114/63
[2018-05-22 20:31] VITALS: BP 127/69
[2018-05-23 05:22] VITALS: BP 103/58
[2018-05-23 06:54] LABS: ALKALINE PHOSPHATASE 51 U/L (46-116); ALT/SGPT 16 U/L (16-63); AST/SGOT 22 U/L (15-37); BASOPHIL % 0.2 % (0-2); BILIRUBIN TOTAL 0.94 mg/dL (0.20-1.00); CALCIUM 8.4 mg/dL (8.5-10.1); CARBON DIOXIDE 27.4 mmol/L (21-32); CHLORIDE SERUM 107 mmol/L (98-107); CREATININE SERUM 1.7 mg/dL (0.7-1.3); GLUCOSE SERUM 99 mg/dL (74-106); PLATELET COUNT 146 x10^3mcL (130-400); POTASSIUM SERUM 3.4 mmol/L (3.5-5.1); SODIUM SERUM 145 mmol/L (136-145); TOTAL PROTEIN, SERUM 6.8 g/dL (6.4-8.2)
[2018-05-23 07:01] LABS: RED CELL DISTRIBUTION WIDTH 15.8 % (11.5-14.5)
[2018-05-23 08:33] VITALS: BP 105/62
[2018-05-23 12:15] VITALS: BP 125/72
[2018-05-23 13:27] VITALS: BP 105/62
== END 2018-05-23 16:02 | disposition home health service (06) | DRG 641 ==
LOC: ED 17:40 → DU 20:06
PROVIDERS: Emergency Medicine; Internal Medicine Pulmonary Disease
DX: E86.0 Dehydration (principal); N17.9 Acute kidney failure, unspecified; I50.32 Chronic diastolic (congestive) heart failure; T50.1X5A Adverse effect of loop [high-ceiling] diuretics, initial encounter; E83.42 Hypomagnesemia; E87.3 Alkalosis; E87.6 Hypokalemia; R54 Age-related physical debility; R53.81 Other malaise; F03.90 Unspecified dementia, unspecified severity, without behavioral disturbance, psychotic disturbance, mood disturbance, and anxiety; I12.9 Hypertensive chronic kidney disease with stage 1 through stage 4 chronic kidney disease, or unspecified chronic kidney disease; N18.3 Chronic kidney disease, stage 3 (moderate); E03.9 Hypothyroidism, unspecified; F32.9 Major depressive disorder, single episode, unspecified; F17.210 Nicotine dependence, cigarettes, uncomplicated; Z95.0 Presence of cardiac pacemaker; Y92.009 Unspecified place in unspecified non-institutional (private) residence as the place of occurrence of the external cause
CPT/HCPCS: 36600; 82962; 97110-GP; 97116-GP; 97530-GP; 99406; J2405; J3475; J3490; J7030; J7040; J7620; Q0092

== ENCOUNTER 2019-07-10 05:13 | Inpatient (IN) | payer OTHER ==
[~2019-07-10] VITALS: Ht 177.8 cm; Wt 117.9 kg
[~2019-07-10 05:13] MED LIST changes: +LASIX20 MG PO; +LASIX80 MG PO; +POTASSIUM CHLO10 MEQ; +PRINIVIL20 MG PO; +TAMSULOSIN HYD0.4 M1
[2019-07-10 07:11] LABS: BASOPHIL % 0.5 % (0-2); PLATELET COUNT 151 x10^3mcL (130-400)
[2019-07-10] MEDS ORDERED: Z5 PO (08:12)
[2019-07-10] MEDS ORDERED: SYNTHROID0.2 MG PO (08:13)
[2019-07-10 08:16] LABS: RED CELL DISTRIBUTION WIDTH 15.1 % (11.5-14.5)
[2019-07-10] MEDS ORDERED: LASIX40 MG PO (08:16)
[2019-07-10 08:23] LABS: ALBUMIN 3.6 g/dL (3.4-5.0); ALKALINE PHOSPHATASE 58 U/L (46-116); ALT/SGPT 22 U/L (16-63); AST/SGOT 40 U/L (15-37); BILIRUBIN TOTAL 0.5 mg/dL (0.20-1.00); CARBON DIOXIDE 26.6 mmol/L (21-32); CHLORIDE SERUM 105 mmol/L (98-107); CREATININE SERUM 2.4 mg/dL (0.7-1.3); GLUCOSE SERUM 148 mg/dL (74-106); POTASSIUM SERUM 3.7 mmol/L (3.5-5.1); SODIUM SERUM 146 mmol/L (136-145); TOTAL PROTEIN, SERUM 8.2 g/dL (6.4-8.2)
[2019-07-10 10:13] LABS: microscopic required? YES; urine erythrocyte NEGATIVE (NEGATIVE)
[2019-07-10 11:37] VITALS: BP 123/56
[2019-07-10 16:33] LABS: CALCIUM 8.9 mg/dL (8.5-10.1); CARBON DIOXIDE 30.9 mmol/L (21-32); CHLORIDE SERUM 105 mmol/L (98-107); CREATININE SERUM 2.3 mg/dL (0.7-1.3); GLUCOSE SERUM 154 mg/dL (74-106); POTASSIUM SERUM 3.8 mmol/L (3.5-5.1); SODIUM SERUM 145 mmol/L (136-145)
[2019-07-10 17:18] VITALS: BP 128/78
[2019-07-10 19:10] VITALS: BP 129/63
[2019-07-11 05:30] VITALS: BP 115/66
[2019-07-11 08:20] VITALS: BP 140/81
[2019-07-11 16:23] VITALS: BP 131/70
[2019-07-11 20:35] VITALS: BP 122/82
[2019-07-12 05:30] VITALS: BP 164/97
[2019-07-12 06:35] VITALS: BP 150/85
[2019-07-12 06:35] LABS: BASOPHIL % 0.3 % (0-2); PLATELET COUNT 154 x10^3mcL (130-400)
[2019-07-12 06:39] LABS: CALCIUM 8.2 mg/dL (8.5-10.1); CARBON DIOXIDE 25.1 mmol/L (21-32); CHLORIDE SERUM 106 mmol/L (98-107); CREATININE SERUM 2.3 mg/dL (0.7-1.3); GLUCOSE SERUM 152 mg/dL (74-106); POTASSIUM SERUM 3.9 mmol/L (3.5-5.1); SODIUM SERUM 145 mmol/L (136-145)
[2019-07-12 06:49] LABS: RED CELL DISTRIBUTION WIDTH 15.3 % (11.5-14.5)
[2019-07-12 09:10] VITALS: BP 102/63
[2019-07-12 14:00] VITALS: BP 154/76
[2019-07-12] MEDS ORDERED: CIPRO250 MG PO (14:23)
[2019-07-12 17:04] VITALS: BP 117/71
[2019-07-12 19:48] VITALS: BP 142/70
[2019-07-13 05:36] VITALS: BP 153/94
[2019-07-13 08:02] VITALS: Ht 177.8 cm; Wt 117.9 kg
[2019-07-13 08:53] VITALS: BP 144/79
[2019-07-13 09:38] VITALS: BP 144/79
[2019-07-13 12:38] VITALS: BP 147/84
[2019-07-13 13:03] VITALS: BP 147/84
[2019-07-13 16:54] VITALS: BP 140/60
[2019-07-13] MEDS ORDERED: ROC1I IV (17:35)
== END 2019-07-13 19:06 | DRG 690 ==
LOC: ED 05:13 → DU 08:45
PROVIDERS: Emergency Medicine; Internal Medicine Pulmonary Disease; ADMIT Internal Medicine Pulmonary Disease
DX: N39.0 Urinary tract infection, site not specified (principal); I48.20 Chronic atrial fibrillation, unspecified; J98.11 Atelectasis; I13.0 Hypertensive heart and chronic kidney disease with heart failure and stage 1 through stage 4 chronic kidney disease, or unspecified chronic kidney disease; I50.32 Chronic diastolic (congestive) heart failure; N18.4 Chronic kidney disease, stage 4 (severe); B95.2 Enterococcus as the cause of diseases classified elsewhere; E86.0 Dehydration; R55 Syncope and collapse; J44.9 Chronic obstructive pulmonary disease, unspecified; E03.9 Hypothyroidism, unspecified; N40.0 Benign prostatic hyperplasia without lower urinary tract symptoms; E66.01 Morbid (severe) obesity due to excess calories; Z22.322 Carrier or suspected carrier of Methicillin resistant Staphylococcus aureus; Z95.0 Presence of cardiac pacemaker; Z68.39 Body mass index [BMI] 39.0-39.9, adult
CPT/HCPCS: 36600; 82962; 87804; 97110-GP; 97116-GP; 97530-GP; G0378; J0696; J1630; J7030; J7060; Q0092